=== PATIENT | female | born 1990 | race American Indian/Alaskan Native ===

== ENCOUNTER 2017-02-26 12:34 | Emergency (ER) | payer MEDICAID, OTHER ==
[2017-02-26 12:48] VITALS: TEMP 98
[2017-02-26] MEDS ORDERED: Alum-Mag Hydrox-Simethicone Susp (30 mL) PO STA (12:52)
[2017-02-26] MEDS ORDERED: Alum-Mag Hydrox-Simethicone Susp (30 mL) ONE (13:09)
--- NOTE | 2017-02-26 13:09 | ED PDOC ---
HPI: Psych/Substance Abuse Time Seen by Provider: 02/26/17 12:50 Chief Complaint (Nursing): Alcohol Ingestion Chief Complaint (Provider): Chest discomfort History Per: Patient History/Exam Limitations: no limitations Onset/Duration Of Symptoms: Hrs Additional Complaint(s): Patient is a 27 y/o female with a past medical history of alcohol abuse presenting to the emergency department for worsening chest discomfort since 10: 30 this morning. Reports that the discomfort occurs while taking a deep breath and that the problem has been ongoing intermittently for the past 3 months. Notes that she was seen at [facility] for the same complaint and was told that she had a cyst. Denies any cocaine use, vomiting, use of medication to relieve pain, or other complaints. Of note, patient admits to smoking and drinking since yesterday. PCP: Dr. Makayla Thurman Past Medical History Reviewed: Historical Data, Nursing Documentation, Vital Signs Vital Signs: Last Vital Signs Temp 98 F 02/26/17 12:45 Pulse 134 H 02/26/17 12:45 Resp 22 02/26/17 12:45 BP 139/111 H 02/26/17 12:45 Pulse Ox 99 02/26/17 12:45 - Medical History PMH: Anemia - Family History Family History: States: Unknown Family Hx - Social History Current smoker - smoking cessation education provided: Yes Ex-Smoker (has not smoked in the last 12 months): No Alcohol: Social Drugs: Denies - Immunization History Hx Tetanus Toxoid Vaccination: No Hx Influenza Vaccination: No Hx Pneumococcal Vaccination: No - Home Medications Home Medications: Ambulatory Orders Medication Instructions Recorded Sertraline HCl 50 mg PO DAILY 10/08/16 Trazodone HCl 100 mg PO HS 10/08/16 traMADol [Ultram] 50 mg PO TID 10/08/16 Ranitidine HCl [Zantac 75] 75 mg PO BID PRN #10 tablet 02/26/17 - Allergies Allergies/Adverse Reactions: Allergies Allergy/AdvReac Type Severity Reaction Status Date / Time No Known Allergies Allergy Verified 10/08/16 12:45 Review of Systems ROS Statement: Except As Marked, All Systems Reviewed And Found Negative Respiratory: Positive for: Pleuritic Pain (chest discomfort) Gastrointestinal: Negative for: Vomiting Physical Exam - Reviewed Nursing Documentation Reviewed: Yes Vital Signs Reviewed: Yes - Physical Exam Appears: Positive for: No Acute Distress Head Exam: Positive for: ATRAUMATIC, NORMAL INSPECTION, NORMOCEPHALIC Skin: Positive for: Normal Color, Warm, Dry Eye Exam: Positive for: Normal appearance Neck: Positive for: Normal Cardiovascular/Chest: Positive for: Regular Rate, Rhythm Respiratory: Negative for: Accessory Muscle Use, Respiratory Distress Gastrointestinal/Abdominal: Positive for: Tenderness (mild upper left quadrant abdominal pain and mild chest wall pain) Extremity: Positive for: Normal ROM Neurologic/Psych: Positive for: Alert, Oriented (x3) - Laboratory Results Result Diagrams: 02/26/17 13:25 02/26/17 13:25 - ECG O2 Sat by Pulse Oximetry: 99 (RA) Pulse Ox Interpretation: Normal - Progress ED Course And Treament: CTA OF CHEST: Impression: No large central or segmental pulmonary embolus identified. MAALOX 30 ML PO X 1 DOSE VISCOUS LIDOCAINE 5ML PO X 1 DOSE PATIENT APPEARS IMPROVED IN ED. EATING SANDWICH AND APPLE JUICE WITHOUT DIFFICULTY. Medical Decision Making Medical Decision Making: Time: 12:51 Initial impression: Chest discomfort Initial plan: EKG ED Urine Labs: CMP, Lipase, CBC, D-Dimer Lidocaine 5 mL PO Maalox Plus 30 mL ~ Scribe Attestation: Documented by Tanika Ramires, acting as a scribe for LAURENT Moya. Provider Scribe Attestation: All medical record entries made by the Scribe were at my direction and personally dictated by me. I have reviewed the chart and agree that the record accurately reflects my personal performance of the history, physical exam, medical decision making, and the department course for this patient. I have also personally directed, reviewed, and agree with the discharge instructions and disposition. Disposition - Clinical Impression Clinical Impression: Chest pain, Alcohol abuse - Patient ED Disposition Is Patient to be Admitted: No - Disposition Referrals: [facility] [Outside] Disposition: Routine/Home Disposition Time: 17:21 Condition: FAIR Prescriptions: Ranitidine HCl [Zantac 75] 75 mg PO BID PRN #10 tablet PRN Reason: Gi Distress Instructions: Diet for Ulcers and Gastritis (ED) Forms: [facility] (Maltese)
[2017-02-26 13:34] LABS: BASO % 0.7 % (0.0-2.0); EOS # 0.1 K/uL (0.0-0.7); EOS % 0.8 % (0.0-4.0); HEMATOCRIT 37.4 % (34.0-47.0); LYMPH # 2.4 K/uL (1.0-4.3); LYMPH % 34.8 % (20.0-40.0); MEAN CELL VOLUME 78.2 fl (81.0-99.0); MEAN CORPUSCULAR HEMOGLOBIN 25.5 pg (27.0-31.0); MEAN CORPUSCULAR HGB CONC 32.6 g/dL (33.0-37.0); MEAN PLATELET VOLUME 8.1 fl (7.2-11.7); MONO # 0.4 K/uL (0.0-0.8); MONO % 5.5 % (0.0-10.0); NEUT # 4.1 K/uL (1.8-7.0); NEUT % 58.2 % (50.0-75.0); NRBC % 0.2 % (0.0-0.0); RED CELL DISTRIBUTION WIDTH 17.7 % (11.5-14.5)
[2017-02-26 13:45] LABS: ALB/GLOB RATIO 1.3 (1.0-2.1); ALKALINE PHOSPHATASE 59 U/L (38-126); ALT/SGPT 20 U/L (9-52); AST/SGOT 37 U/L (14-36); BILIRUBIN,TOTAL < 0.1 mg/dl (0.2-1.3); BLOOD UREA NITROGEN 9 mg/dl (7-17); CALCIUM 8.5 mg/dL (8.4-10.2); CARBON DIOXIDE 17 mmol/L (22-30); CHLORIDE 113 mmol/L (98-107); GFR AFRICAN-AMERICAN > 60; GLUCOSE,RANDOM 110 mg/dL (65-105); LIPASE 114 U/L (23-300); POTASSIUM 3.7 MMOL/L (3.6-5.0); SODIUM 150 mmol/l (132-148); TOTAL PROTEIN 8.3 G/DL (6.3-8.2)
[2017-02-26] MEDS ORDERED: Iodixanol 320 MG/ML 100 ML BOTTLE IV ONE (16:03)
[2017-02-26] MEDS ORDERED: Sodium Chloride 0.9% 50 ML IV ONE (16:04)
[2017-02-26 17:07] VITALS: BP 144/88; PULSE 92; RESP 16
--- NOTE | 2017-02-26 17:15 | CT ---
CTA chest PE protocol Indication: Chest pain, rule out PE Technique: Contiguous axial images were obtained through the chest with intravenous contrast enhancement. Sagittal and coronal reconstructions were generated and reviewed. This CT exam was performed using 1 or more of the falling dose reduction techniques: Automated exposure control, adjustment of the MAA and/or kV according to patient size, and/or use of iterative reconstruction technique. IV Contrast: 90 mL Visipaque 320 Radiation dose (DLP): 388.20 MGy-cm. Comparison: Chest x-ray performed 07/31/14 Findings: Visualized portions of the inferior thyroid gland appear unremarkable. The mediastinal and hilar vascular structures appear within normal limits. The heart appears within normal limits of size. No large central or segmental pulmonary embolus evident. No focal consolidation. No pleural effusion. No pneumothorax. No suspicious pulmonary nodules measuring greater than 5 mm. Limited visualized portions of the upper abdomen appear grossly unremarkable. No acute osseous abnormality is detected. Impression: No large central or segmental pulmonary embolus identified.
[2017-02-26 17:22] VITALS: O2SAT 99
--- NOTE | 2017-02-27 08:48 | CARD ---
APPROVED REPORT EKG Measurement Heart [id number] <Conclusion> Sinus tachycardia Otherwise normal ECG
== END 2017-02-26 17:59 | disposition home or self-care (01) ==
LOC: H.ER 12:34
DX: R07.89 Other chest pain (principal); F10.10 Alcohol abuse, uncomplicated
CPT/HCPCS: 71275; 80053; 81025; 83690; 85025; 85378; 93005; 99281; Q9967

== ENCOUNTER 2018-01-17 10:04 | Emergency (ER) | payer OTHER ==
[2018-01-17 10:09] VITALS: BMI 30.7
[2018-01-17] MEDS ORDERED: Amoxicillin-Clav 875-125 mg Tab PO STA (10:28)
[2018-01-17] MEDS ORDERED: Amoxicillin-Clav 875-125 mg Tab PO ONE (11:14)
[2018-01-17 11:30] VITALS: O2SAT 99
--- NOTE | 2018-01-17 11:30 | ED PDOC ---
HPI: CCC, URI, Sore Throat Time Seen by Provider: 01/17/18 10:11 Chief Complaint (Nursing): ENT Problem Chief Complaint (Provider): Ear pain History Per: Patient Additional Complaint(s): Pt is a 27 yo female, denies any PMH, brought in to ED via ambulance for eval of bilateral ear pain for one week. Pt states she's been using ear drops (name unknown, prescribed by Urgent Care) with no relief. Also c/o LT arm pain after receiving flu vaccine, "bad cough," with green phlegm. Denies fever. Pt seemingly intoxicated, and admits to "binge drinking" last night. Pt offered crisis evaluation and detox services; however, declined. Past Medical History Reviewed: Nursing Documentation, Vital Signs Vital Signs: Last Vital Signs Temp 100 F H 01/17/18 10:09 Pulse 119 H 01/17/18 10:09 Resp 18 01/17/18 10:09 BP 146/93 H 01/17/18 10:09 Pulse Ox 99 01/17/18 10:09 - Medical History PMH: Anemia Denies: Chronic Kidney Disease - Family History Family History: States: Unknown Family Hx - Living Arrangements Living Arrangements: With Family - Social History Current smoker - smoking cessation education provided: No Alcohol: > 2 Drinks/Day Drugs: Cannabis - Immunization History Hx Tetanus Toxoid Vaccination: No Hx Influenza Vaccination: No Hx Pneumococcal Vaccination: No - Home Medications Home Medications: Ambulatory Orders Medication Instructions Recorded Sertraline HCl 50 mg PO DAILY 10/08/16 Trazodone HCl 100 mg PO HS 10/08/16 traMADol [Ultram] 50 mg PO TID 10/08/16 Ranitidine HCl [Zantac 75] 75 mg PO BID PRN #10 tablet 02/26/17 Amoxicillin/Clavulanate [Augmentin 1 tab PO BID #14 tab 01/17/18 875 MG-125 MG] Ibuprofen [Motrin] 600 mg PO Q6 #20 tab 01/17/18 - Allergies Allergies/Adverse Reactions: Allergies Allergy/AdvReac Type Severity Reaction Status Date / Time No Known Allergies Allergy Verified 01/17/18 10:43 Review of Systems ROS Statement: Except As Marked, All Systems Reviewed And Found Negative ENT: Positive for: Ear Pain Respiratory: Positive for: Cough Physical Exam - Reviewed Nursing Documentation Reviewed: Yes Vital Signs Reviewed: Yes - Physical Exam Appears: Positive for: Well, Non-toxic, No Acute Distress Head Exam: Positive for: ATRAUMATIC, NORMAL INSPECTION, NORMOCEPHALIC Skin: Positive for: Normal Color, Warm, DRY Eye Exam: Positive for: EOMI, Normal appearance, PERRL ENT: Positive for: TM Is/Are (erythematous b/l). Negative for: Nasal Congestion , Pharyngeal Erythema, Tonsillar Exudate, Tonsillar Swelling Neck: Positive for: Normal, Painless ROM Cardiovascular/Chest: Positive for: Regular Rate, Rhythm Respiratory: Positive for: CNT, Normal Breath Sounds Gastrointestinal/Abdominal: Positive for: Normal Exam, Soft Back: Positive for: Normal Inspection Extremity: Positive for: Normal ROM Neurologic/Psych: Positive for: Alert, Oriented - ECG O2 Sat by Pulse Oximetry: 99 Medical Decision Making Medical Decision Making: Pt medicated with Augmentin and Motrin after physical exam preformed. Pt on re-eval Pt reports having chest pain and is disappointed at only getting antibitoics. EKG NSR at 79 bpm, no axis deviation, no acute ST changes, as read by ED MD journalists and other writers spoke with pt at length about OM and management. Pt reports she thought she would be staying in the ER. Pt again offered crisis eval and educated on detox centers. Pt declined and reports she would liek to go home at this time. repeat vitals: P:88 POX:98% on RA BP: 158/78 Disposition - Clinical Impression Clinical Impression: Otitis - Patient ED Disposition Is Patient to be Admitted: No - Disposition Disposition: Routine/Home Disposition Time: 11:37 Condition: STABLE Prescriptions: Amoxicillin/Clavulanate [Augmentin 875 MG-125 MG] 1 tab PO BID #14 tab Ibuprofen [Motrin] 600 mg PO Q6 #20 tab Instructions: Ear Infections (Otitis Media)
[2018-01-17 12:52] VITALS: BP 126/76; PULSE 91; RESP 18; TEMP 98.7
== END 2018-01-17 12:31 | disposition home or self-care (01) ==
LOC: H.ER 10:04
DX: H66.93 Otitis media, unspecified, bilateral (principal)